=== PATIENT | male | born 1995 | race African-American/Black ===

== ENCOUNTER 2017-12-19 14:39 | Emergency (ER) | payer SELFPAY ==
[2017-12-19] VITALS (12 sets, daily range): BP systolic 99–161; BP diastolic 51–89
[~2017-12-19] VITALS: Ht 182.9 cm; Wt 70.3 kg
--- NOTE | 2017-12-19 14:44 | Emergency Room Report ---
History of Present Illness General Chief Complaint: Behavioral Complaint Source: EMS (Ace Veloz MD) Present Illness HPI Patient is a 22-year-old male brought in by the [place] [employer] and [employer] [employer] after being found walking in the middle of the street. The patient the reports using cocaine as well as other substances. The patient was the reportedly not able to be interviewed by the [facility] in terms of suicidality. Patient had bizarre speech. (Ace Veloz MD) Allergies: Coded Allergies: No Known Allergies (Unverified , 12/20/17) Patient History Reviewed Nursing Documentation: PMH: Agreed; PSxH: Agreed (Ace Veloz MD) Nursing Documentation-PMH Past Medical History: Deferred (Ace Veloz MD) Review of Systems All Other Systems: negative except mentioned in HPI (Ace Veloz MD) Physical Exam Vital Signs Date Time Temp Pulse Resp B/P (MAP) Pulse Ox O2 Delivery O2 Flow Rate FiO2 12/19/17 14:30 98.8 112 18 142/79 99 Room Air 98.8 Sp02 EP Interpretation: reviewed, normal General Appearance: alert/responsive, no apparent distress, GCS 15, non-toxic Head: atraumatic Eyes: PERRL, lids + conjunctiva normal ENT: hearing intact, no angioedema Neck: supple/symm/no masses, no meningismus Respiratory: effort normal, no wheezing, chest symmetrical Cardiovascular: regular rate, rhythm, no edema Cardiovascular #2: 2+ carotid (R), 2+ carotid (L), 2+ dorsalis pedis (R), 2+ dorsalis pedis (L) Gastrointestinal: non-tender, no mass, non-distended, no rebound/guarding, normal bowel sounds Musculoskeletal: gait & station normal, strength & tone normal, normal ROM, non -tender Neurologic: normal inspection, CN II-XII intact, oriented x3, sensory intact, normal speech Psychiatric: other - awake alert Skin: no rash, well hydrated Lymphatic: normal inspection (Ace Veloz MD) Medical Decision Making Restraint Attestation I, Ace Veloz MD, have personally evaluated this patient. Laboratory tests have been reviewed and addressed accordingly. The patient is deemed to present a danger to themselves and/or others. This is based on the exam, history ( provided by patient, EMS/[employer] and/or family) and observed or reported behavior. Attempts for non-invasive measures have been considered and/or attempted, however, have been futile. It is in the best interest of the nursing staff, the patient, and others involved in this patient's care that behavioral restraints be applied. Patient evaluation reveals the following: Marked agitation, combativeness, and confusion. (Ace Veloz MD) Diagnostic Impression: Primary Impression: Polysubstance abuse Additional Impression: Psychosis Qualified Codes: F23 - Brief psychotic disorder ER Course This presented for bizarre behaviore. Differential diagnoses include substance abuse, psychosis, bipolar disorder, depression, malingering. Because of complexity of patient's case laboratory testing and imaging studies were ordered. The patient was noted to have marked agitation initially. The patient was brought in handcuffed. He was placed in restraints. The patient was medicated with antipsychotic and sedative medications. The patient was noted to be on a 5150 hold placed by Police Department.The patient endorsed to Dr. Rosales pending psychiatric consult. Labs Test 12/19/17 15:02 12/19/17 16:12 White Blood Count 9.5 K/UL (4.8-10.8) Red Blood Count 4.83 M/UL (4.70-6.10) Hemoglobin 15.4 G/DL (14.2-18.0) Hematocrit 46.0 % (42.0-52.0) Mean Corpuscular Volume 95 FL (80-99) Mean Corpuscular Hemoglobin 31.8 PG (27.0-31.0) Mean Corpuscular Hemoglobin Concent 33.4 G/DL (32.0-36.0) Red Cell Distribution Width 11.2 % (11.6-14.8) Platelet Count 239 K/UL (150-450) Mean Platelet Volume 6.8 FL (6.5-10.1) Neutrophils (%) (Auto) 79.7 % (45.0-75.0) Lymphocytes (%) (Auto) 13.5 % (20.0-45.0) Monocytes (%) (Auto) 6.1 % (1.0-10.0) Eosinophils (%) (Auto) 0.1 % (0.0-3.0) Basophils (%) (Auto) 0.6 % (0.0-2.0) Sodium Level 139 MMOL/L (136-145) Potassium Level 3.5 MMOL/L (3.5-5.1) Chloride Level 102 MMOL/L (98-107) Carbon Dioxide Level 20 MMOL/L (21-32) Anion Gap 17 mmol/L (5-15) Blood Urea Nitrogen 19 mg/dL (7-18) Creatinine 1.5 MG/DL (0.55-1.30) Estimat Glomerular Filtration Rate 59.7 mL/min (>60) Glucose Level 121 MG/DL (74-106) Calcium Level 9.8 MG/DL (8.5-10.1) Total Bilirubin 0.7 MG/DL (0.2-1.0) Aspartate Amino Transf (AST/SGOT) 38 U/L (15-37) Alanine Aminotransferase (ALT/SGPT) 41 U/L (12-78) Alkaline Phosphatase 70 U/L (46-116) Total Protein 8.3 G/DL (6.4-8.2) Albumin 4.5 G/DL (3.4-5.0) Globulin 3.8 g/dL Albumin/Globulin Ratio 1.2 (1.0-2.7) Salicylates Level 2.8 ug/mL (2.8-20) Acetaminophen Level < 2 MCG/ML (10-30) Serum Alcohol < 3 mg/dL Urine Color Pale yellow Urine Appearance Clear Urine pH 5 (4.5-8.0) Urine Specific [place] 1.020 (1.005-1.035) Urine Protein 1+ (NEGATIVE) Urine Glucose (UA) Negative (NEGATIVE) Urine Ketones 3+ (NEGATIVE) Urine Occult Blood 1+ (NEGATIVE) Urine Nitrite Negative (NEGATIVE) Urine Bilirubin Negative (NEGATIVE) Urine Urobilinogen Normal MG/DL (0.0-1.0) Urine Leukocyte Esterase Negative (NEGATIVE) Urine RBC 2-4 /HPF (0 - 0) Urine WBC 0-2 /HPF (0 - 0) Urine Squamous Epithelial Cells None /LPF (NONE/OCC) Urine Bacteria Few /HPF (NONE) Urine Opiates Screen Negative (NEGATIVE) Urine Barbiturates Screen Negative (NEGATIVE) Phencyclidine (PCP) Screen Negative (NEGATIVE) Urine Amphetamines Screen Negative (NEGATIVE) Urine Benzodiazepines Screen Negative (NEGATIVE) Urine Cocaine Screen Positive (NEGATIVE) Urine Marijuana (THC) Screen Positive (NEGATIVE) (Ace Veloz MD) ER Course This patient was signed out to me. He was brought in by police because was wandering on the street cursing and acting bizarrely. Hematuria to using drugs. He states been sleeping through the night without a problem. He is awake now and said is not suicidal or homicidal. We'll get psychiatric evaluation to break the 5150. (KRYSTLE ROSALES M.D.) Last Vital Signs Date Time Temp Pulse Resp B/P (MAP) Pulse Ox O2 Delivery O2 Flow Rate FiO2 12/19/17 14:30 98.8 112 18 142/79 99 Room Air 98.8 Status: improved (Ace Veloz MD) Status: improved (KRYSTLE ROSALES M.D.) Disposition: HOME, SELF-CARE Condition: Stable Patient Instructions: Self-Destructive Behavior Additional Instructions: stop using drugs. Follow up with rehab in 7 days. Return if worse. Ace Veloz MD Dec 19, 2017 14:44 KRYSTLE ROSALES M.D. Dec 20, 2017 06:01
[2017-12-19] MEDS ORDERED: Haloperidol 5mg/ml Inj IM ONE (14:45)
[2017-12-19] MEDS ORDERED: DiphenhydrAMINE 50mg/ml Inj IVP ONE (14:45)
[2017-12-19] MEDS ORDERED: LORazepam Inj 2mg/ml 1ml IV ONE (14:45)
[2017-12-19 15:38] LABS: BASOPHILS % (AUTO) 0.6 % (0.0-2.0); EOSINOPHILS % (AUTO) 0.1 % (0.0-3.0); HEMOGLOBIN 15.4 G/DL (14.2-18.0); LYMPHOCYTES % (AUTO) 13.5 % (20.0-45.0); MEAN CORPUSCULAR VOLUME 95 FL (80-99); MONOCYTES % (AUTO) 6.1 % (1.0-10.0); NEUTROPHILS % (AUTO) 79.7 % (45.0-75.0); PLATELET COUNT 239 K/UL (150-450); RED BLOOD COUNT 4.83 M/UL (4.70-6.10); RED CELL DISTRIBUTION WIDTH 11.2 % (11.6-14.8); WHITE BLOOD COUNT 9.5 K/UL (4.8-10.8)
[2017-12-19 15:55] LABS: ANION GAP 17 mmol/L (5-15); BLOOD UREA NITROGEN 19 mg/dL (7-18); CALCIUM 9.8 MG/DL (8.5-10.1); CARBON DIOXIDE 20 MMOL/L (21-32); CHLORIDE 102 MMOL/L (98-107); CREATININE 1.5 MG/DL (0.55-1.30); POTASSIUM 3.5 MMOL/L (3.5-5.1); SODIUM 139 MMOL/L (136-145)
[2017-12-19 15:59] LABS: ALANINE AMINOTRANSFERASE 41 U/L (12-78); ALBUMIN 4.5 G/DL (3.4-5.0); ALBUMIN/GLOBULIN RATIO 1.2 (1.0-2.7); ALKALINE PHOSPHATASE 70 U/L (46-116); ASPARTATE AMINO TRANSFERASE 38 U/L (15-37); BILIRUBIN,TOTAL 0.7 MG/DL (0.2-1.0)
[2017-12-19 16:33] LABS: APPEARANCE,URINE CLEAR; BILIRUBIN, URINE NEGATIVE (NEGATIVE); COLOR,URINE PALE YELLOW; GLUCOSE, URINE (UA) NEGATIVE (NEGATIVE); KETONES,URINE 3+ (NEGATIVE); LEUKOCYTE ESTERASE ,URINE NEGATIVE (NEGATIVE); NITRITE,URINE NEGATIVE (NEGATIVE); PH,URINE 5 (4.5-8.0); PROTEIN,URINE 1+ (NEGATIVE); UROBILINOGEN,URINE NORMAL MG/DL (0.0-1.0)
[2017-12-20] VITALS: BP 122/70
[2017-12-20 05:29] VITALS: BP 128/78
[2017-12-20 08:01] VITALS: BP 121/72
[2017-12-20 11:44] VITALS: BP_SYST 116; BP_SYST 121; BP_DIAS 72; BP_DIAS 79
--- NOTE | 2017-12-21 03:01 | Consultation ---
DATE OF CONSULTATION: 12/20/2017 The patient was seen in the emergency room today. HISTORY OF PRESENT ILLNESS: The patient is a 22-year-old male with a history of no psychiatric hospitalization or any psychiatric disorder who has been admitted to the hospital on 5150 after he was found walking barefoot in the street. The patient stated that he has been using acids recreationally. This is the eighth time that he has been using acid. He appears psychotic when he was placed on a hold. He was unable to provide any history at that time. During my evaluation, the patient was calm and cooperative. No symptoms which were consistent with psychosis, depressive or manic symptoms. The patient was calm and cooperative. No behavioral issues. The patient denied any suicidal or homicidal ideation. PAST PSYCHIATRIC HISTORY: Significant for psychiatric disorder. No suicide attempts. No history of violent behavior. PAST MEDICAL HISTORY: None. ALLERGIES: No known drug allergies. SUBSTANCE ABUSE HISTORY: Positive for history of using drugs and alcohol recreationally. MENTAL STATUS EXAMINATION: The patient is alert and oriented times self, place, and situation he is in. Mood was neutral. Affect was constricted. Congruent with mood. Thought process is linear. Thought content, no suicidal or homicidal ideations. No delusions. No auditory or visual hallucinations. Insight and judgment is fair. Cognition is intact. ASSESSMENT: AXIS I: Substance-induced psychosis. AXIS II: Deferred. AXIS III: As above. AXIS IV: Low. AXIS V: Global assessment of functioning is 70. PLAN: 1. We will discontinue the 5150 hold. 2. The patient is not in any danger to self or others. 3. We will provide the patient with reality orientation and supportive therapy. Hans Fernández M.D. DR: Melodie JOB#: [id number] CC:
--- NOTE | 2017-12-21 07:14 | Emergency Room Report ---
Physical Exam Vital Signs Date Time Temp Pulse Resp B/P (MAP) Pulse Ox O2 Delivery O2 Flow Rate FiO2 12/19/17 14:30 98.8 112 18 142/79 99 Room Air 98.8 Medical Decision Making Diagnostic Impression: Primary Impression: Polysubstance abuse Additional Impression: Psychosis Qualified Codes: F29 - Unspecified psychosis not due to a substance or known physiological condition ER Course 22-year-old male presents ED on 5150 hold with bizarre behavior Patient signed out to me pending psychiatric evaluation. Please see initial note for full history and physical Based on my evaluation I believe patient's behavior was secondary to substance abuse. Upon sobriety patient is not a danger to himself or others Dr. Fernández (psychiatry) evaluated the patient at bedside. Agrees the patient is not a danger to himself. She will lift 5150 hold. I agree with her assessment Diagnosispolysubstance abuse, psychosis Stable and discharged to home. Follow-up with PMD. Return to ED if symptoms recur or worsen Labs Test 12/19/17 15:02 12/19/17 16:12 White Blood Count 9.5 K/UL (4.8-10.8) Red Blood Count 4.83 M/UL (4.70-6.10) Hemoglobin 15.4 G/DL (14.2-18.0) Hematocrit 46.0 % (42.0-52.0) Mean Corpuscular Volume 95 FL (80-99) Mean Corpuscular Hemoglobin 31.8 PG (27.0-31.0) Mean Corpuscular Hemoglobin Concent 33.4 G/DL (32.0-36.0) Red Cell Distribution Width 11.2 % (11.6-14.8) Platelet Count 239 K/UL (150-450) Mean Platelet Volume 6.8 FL (6.5-10.1) Neutrophils (%) (Auto) 79.7 % (45.0-75.0) Lymphocytes (%) (Auto) 13.5 % (20.0-45.0) Monocytes (%) (Auto) 6.1 % (1.0-10.0) Eosinophils (%) (Auto) 0.1 % (0.0-3.0) Basophils (%) (Auto) 0.6 % (0.0-2.0) Sodium Level 139 MMOL/L (136-145) Potassium Level 3.5 MMOL/L (3.5-5.1) Chloride Level 102 MMOL/L (98-107) Carbon Dioxide Level 20 MMOL/L (21-32) Anion Gap 17 mmol/L (5-15) Blood Urea Nitrogen 19 mg/dL (7-18) Creatinine 1.5 MG/DL (0.55-1.30) Estimat Glomerular Filtration Rate 59.7 mL/min (>60) Glucose Level 121 MG/DL (74-106) Calcium Level 9.8 MG/DL (8.5-10.1) Total Bilirubin 0.7 MG/DL (0.2-1.0) Aspartate Amino Transf (AST/SGOT) 38 U/L (15-37) Alanine Aminotransferase (ALT/SGPT) 41 U/L (12-78) Alkaline Phosphatase 70 U/L (46-116) Total Protein 8.3 G/DL (6.4-8.2) Albumin 4.5 G/DL (3.4-5.0) Globulin 3.8 g/dL Albumin/Globulin Ratio 1.2 (1.0-2.7) Salicylates Level 2.8 ug/mL (2.8-20) Acetaminophen Level < 2 MCG/ML (10-30) Serum Alcohol < 3 mg/dL Urine Color Pale yellow Urine Appearance Clear Urine pH 5 (4.5-8.0) Urine Specific [place] 1.020 (1.005-1.035) Urine Protein 1+ (NEGATIVE) Urine Glucose (UA) Negative (NEGATIVE) Urine Ketones 3+ (NEGATIVE) Urine Occult Blood 1+ (NEGATIVE) Urine Nitrite Negative (NEGATIVE) Urine Bilirubin Negative (NEGATIVE) Urine Urobilinogen Normal MG/DL (0.0-1.0) Urine Leukocyte Esterase Negative (NEGATIVE) Urine RBC 2-4 /HPF (0 - 0) Urine WBC 0-2 /HPF (0 - 0) Urine Squamous Epithelial Cells None /LPF (NONE/OCC) Urine Bacteria Few /HPF (NONE) Urine Opiates Screen Negative (NEGATIVE) Urine Barbiturates Screen Negative (NEGATIVE) Phencyclidine (PCP) Screen Negative (NEGATIVE) Urine Amphetamines Screen Negative (NEGATIVE) Urine Benzodiazepines Screen Negative (NEGATIVE) Urine Cocaine Screen Positive (NEGATIVE) Urine Marijuana (THC) Screen Positive (NEGATIVE) Last Vital Signs Date Time Temp Pulse Resp B/P (MAP) Pulse Ox O2 Delivery O2 Flow Rate FiO2 12/20/17 11:44 98.2 98 18 116/79 97 Room Air 98.2 Status: improved Disposition: HOME, SELF-CARE Condition: Stable Referrals: NOT CHOSEN IPA/,REFERRING (PCP) Patient Instructions: Self-Destructive Behavior Additional Instructions: stop using drugs. Follow up with rehab in 7 days. Return if worse. Mir Tran MD Dec 21, 2017 07:13
--- NOTE | 2017-12-23 17:51 | Cardiology Report ---
APPROVED REPORT EKG Measurement Heart [id number] Normal sinus rhythm Inc RBBB Possible Left atrial enlargement Left ventricular hypertrophy Abnormal ECG
== END 2017-12-20 11:44 | disposition home or self-care (01) ==
LOC: EDBD 14:39 → EMR 19:37
DX: F14.10 Cocaine abuse, uncomplicated (principal); F23 Brief psychotic disorder
CPT/HCPCS: 36415; 80053; 80307; 81003; 85025; 93005; 96360; 96361; 96372; 96374; 96375; 99285; G0480; J1200; J1630; 80329